=== PATIENT | female | born 1965 | race Caucasian/White ===

== ENCOUNTER → 2023-10-28 13:27 | Outpatient (REF) | payer BC, SELFPAY | LOC: WDC 13:27 | PROVIDERS: ATTENDING PHYSICIAN Family Medicine | DX: Z12.31 Encounter for screening mammogram for malignant neoplasm of breast (principal) | CPT/HCPCS: 77063; 77067 ==

== ENCOUNTER → 2025-01-29 09:29 | Outpatient (REF) | payer BC, SELFPAY | LOC: HWRAD 09:29 | PROVIDERS: ATTENDING PHYSICIAN Physician Assistant Medical | DX: K76.89 Other specified diseases of liver (principal) | CPT/HCPCS: 76700 ==

== ENCOUNTER → 2025-04-20 17:39 | Outpatient (REF) | payer BC, SELFPAY | LOC: MRI 17:39 | PROVIDERS: ATTENDING PHYSICIAN Physician Assistant Medical | DX: K76.9 Liver disease, unspecified (principal) | CPT/HCPCS: 74183; A9575 ==